=== PATIENT | male | born 1965 | race Caucasian/White ===

== ENCOUNTER 2016-10-16 11:42 | Emergency (ER) | payer BC ==
[~2016-10-16] VITALS: Ht 175.3 cm; Wt 110.0 kg
[~2016-10-16 11:42] MED LIST: ATIVAN1 MG PO; BUSPAR5 MG PO; CYMBALTA60 MG PO; FIORICET 50-301 EACH PO; FISH OIL 1,0001 EACH PO; FISH OIL500 MG PO; KLONOPIN1 MG PO; NORCO 10/3251 TABLET PO; OXYCODONE10 MG PO; OXYCONTIN20 MG PO; PERCOCET 7.51 TABLET PO; TORADOL10 MG PO; XANAX0.5 MG PO
[2016-10-16 12:39] LABS: HEMATOCRIT 44.8 % (38.0-50.0); MCH 26.1 PG (29.0-34.0); MCHC 32.8 G/DL (30.0-36.0); MCV 79.4 FL (86-99); MEAN PLAT.VOLUME 9.9 uM^3 (9.0-12.4); PLATELET COUNT 298 K/uL (156-360); RBC DIS.WIDTH-CV 13.5 % (11.8-14.6); RBC DIS.WIDTH-SD 38.8 % (39-53); RED BLOOD COUNT 5.64 M/uL (4.00-5.50); WHITE BLOOD COUNT 8.7 K/uL (4.1-10.2)
[2016-10-16 12:49] LABS: CHLORIDE 106 mEq/L (99-109); POTASSIUM 4.3 mEq/L (3.7-5.4); SODIUM 139 mEq/L (136-147)
[2016-10-16 12:51] LABS: GLUCOSE 111 mg/dL (70-99)
[2016-10-16 12:52] LABS: ANION GAP 10 MEQ/L (2-14)
[2016-10-16 12:53] LABS: TOTAL BILIRUBIN 0.9 mg/dL (0.0-1.0)
[2016-10-16 12:54] LABS: ALKALINE PHOSPHATASE 100 IU/L (3-129)
[2016-10-16 12:55] LABS: GFR ESTIMATE (CALCULATED) > 59 mL/min/
[2016-10-16 12:56] LABS: UREA NITROGEN (BUN) 13 mg/dL (9-23)
[2016-10-16 12:58] LABS: LIPASE 109 U/L (1.0-51.0)
[2016-10-16 13:11] LABS: ADD MIUA? YES; BILIRUBIN NEGATIVE; BLOOD SMALL; COLOR YELLOW ((YELLOW)); GLUCOSE (STRIP) NEGATIVE; KETONES 5; LEUKOCYTES NEGATIVE; NITRITE NEGATIVE; PROTEIN (STRIP) 30; SPECIFIC GRAVITY 1.025 (1.000-1.030); UROBILINOGEN 0.2 MG/DL (0.2-1.0)
[2016-10-16 13:19] LABS: BACTERIA NONE SEEN /HPF; CALCIUM OXALATE CRYSTALS 1+ /HPF; EPITHELIAL CELLS NONE SEEN /HPF; MUCUS TRACE /LPF; RED BLOOD CELLS TNTC /HPF (0-5); WHITE BLOOD CELLS 0-5 /HPF (0-5)
[2016-10-16] MEDS ORDERED: ZOFRAN ODT4 MG PO (14:00)
[2016-10-16] MEDS ORDERED: NORCO 5/3251 TABLET PO (14:00)
[2016-10-16] MEDS ORDERED: FLOMAX0.4 MG PO (14:00)
[2016-10-16 14:51] VITALS: BP 141/79
== END 2016-10-16 15:29 | disposition home or self-care (01) ==
LOC: EME → EDBD 11:42 → EME 11:42
PROVIDERS: Nurse Practitioner Family
DX: N20.1 Calculus of ureter (principal); Z88.1 Allergy status to other antibiotic agents; Z88.2 Allergy status to sulfonamides; Z87.442 Personal history of urinary calculi
CPT/HCPCS: 74177; 80053; 81003; 83690; 85027; 99281; 99285; J1885; J2270; J2405; J3010; J7030

== ENCOUNTER 2016-10-19 14:35 | Emergency (ER) | payer BC ==
[~2016-10-19] VITALS: Ht 175.3 cm; Wt 110.2 kg
[~2016-10-19 14:35] MED LIST changes: +FLOMAX0.4 MG PO; +NORCO 5/3251 TABLET PO; +ZOFRAN ODT4 MG PO
[2016-10-19 15:28] LABS: HEMATOCRIT 42.7 % (38.0-50.0); MCH 26.1 PG (29.0-34.0); MCHC 32.6 G/DL (30.0-36.0); MCV 80.1 FL (86-99); MEAN PLAT.VOLUME 9.6 uM^3 (9.0-12.4); PLATELET COUNT 249 K/uL (156-360); RBC DIS.WIDTH-CV 13.2 % (11.8-14.6); RBC DIS.WIDTH-SD 37.7 % (39-53); RED BLOOD COUNT 5.33 M/uL (4.00-5.50); WHITE BLOOD COUNT 8.4 K/uL (4.1-10.2)
[2016-10-19 15:42] LABS: CHLORIDE 101 mEq/L (99-109); POTASSIUM 3.9 mEq/L (3.7-5.4); SODIUM 137 mEq/L (136-147)
[2016-10-19 15:44] LABS: GLUCOSE 113 mg/dL (70-99)
[2016-10-19 15:46] LABS: ANION GAP 13 MEQ/L (2-14)
[2016-10-19 15:48] LABS: GFR ESTIMATE (CALCULATED) > 59 mL/min/
[2016-10-19 15:49] LABS: UREA NITROGEN (BUN) 18 mg/dL (9-23)
[2016-10-19 18:03] LABS: ALKALINE PHOSPHATASE 87 IU/L (3-129)
[2016-10-19 18:05] LABS: DIRECT BILIRUBIN 0.3 mg/dL (0.0-0.3)
[2016-10-19 18:06] LABS: LIPASE 25 U/L (1.0-51.0)
[2016-10-19 18:16] LABS: TOTAL BILIRUBIN 1.3 mg/dL (0.0-1.0)
[2016-10-19 18:57] LABS: ADD MIUA? NO; BILIRUBIN NEGATIVE; BLOOD NEGATIVE; COLOR YELLOW ((YELLOW)); GLUCOSE (STRIP) NEGATIVE; KETONES 5; LEUKOCYTES NEGATIVE; NITRITE NEGATIVE; PROTEIN (STRIP) 30; UROBILINOGEN 0.2 MG/DL (0.2-1.0)
[2016-10-19] MEDS ORDERED: NORCO 7.5/321 TABLET PO (19:26)
[2016-10-19] MEDS ORDERED: PROMETHAZINE HC25 M1 PO (19:26)
[2016-10-19] MEDS ORDERED: PHENERGAN25 MG PR (19:26)
[2016-10-19] MEDS ORDERED: MOTRIN800 MG PO (19:26)
[2016-10-19 20:41] VITALS: BP 159/81
== END 2016-10-19 20:42 | disposition home or self-care (01) ==
LOC: EME 14:35 → EXP 14:35
PROVIDERS: Physician Assistant
DX: N20.1 Calculus of ureter (principal); R11.2 Nausea with vomiting, unspecified; Z87.442 Personal history of urinary calculi
CPT/HCPCS: 80048; 80076; 81003; 83690; 85027; 99281; 99285; J1885; J2405; J3010; J7030